=== PATIENT | female | born 1995 | race Caucasian/White ===

== ENCOUNTER → 2017-04-08 | Outpatient (CLI) | payer BC | LOC: M SLEEP HO 14:21 | DX: G47.30 Sleep apnea, unspecified (principal) | CPT/HCPCS: G0399 ==

== ENCOUNTER → 2017-05-19 | Outpatient (CLI) | payer BC | LOC: M SLEEP 19:49 | DX: G47.30 Sleep apnea, unspecified (principal) | CPT/HCPCS: 95810 ==

== ENCOUNTER → 2017-09-05 | Outpatient (REF) | payer BC ==
[2017-09-05 19:38] LABS: APPEARANCE, URINE HAZY (CLEAR); BACTERIA, URINE AUTO NEGATIVE (NEGATIVE); BILIRUBIN, URINE AUTO NEGATIVE (NEGATIVE); BLOOD, URINE BLOOD 1+ (NEGATIVE); COLOR, URINE YELLOW (YELLOW); GLUCOSE, URINE (UA) AUTO NEGATIVE (NEGATIVE); KETONE, URINE AUTO NEGATIVE (NEGATIVE); LEUKOCYTE ESTERASE, URINE AUTO 1+ (NEGATIVE); MUCUS, URINE SMALL (NEGATIVE); NITRITE, URINE AUTO NEGATIVE (NEGATIVE); PROTEIN, URINE AUTO NEGATIVE (NEGATIVE); RBC, URINE AUTO 2 /HPF (0-3); SPECIFIC GRAVITY URINE AUTO 1.023 (1.002-1.035); SQUAMOUS EPITHELIAL CELL UR AU 2 /HPF (0-6); UROBILINOGEN, URINE AUTO 0.2 mg/dL (0.0-2.0); WBC, URINE AUTO 3 /HPF (0-3)
== END ==
LOC: M LAB REF 16:36
DX: N39.0 Urinary tract infection, site not specified (principal)
CPT/HCPCS: 81001

== ENCOUNTER → 2017-09-26 | Outpatient (REF) | payer BC ==
[2017-09-26 22:05] LABS: APPEARANCE, URINE HAZY (CLEAR); BACTERIA, URINE AUTO 2+ (NEGATIVE); BILIRUBIN, URINE AUTO NEGATIVE (NEGATIVE); BLOOD, URINE BLOOD NEGATIVE (NEGATIVE); COLOR, URINE YELLOW (YELLOW); GLUCOSE, URINE (UA) AUTO NEGATIVE (NEGATIVE); KETONE, URINE AUTO NEGATIVE (NEGATIVE); LEUKOCYTE ESTERASE, URINE AUTO 3+ (NEGATIVE); MUCUS, URINE SMALL (NEGATIVE); NITRITE, URINE AUTO NEGATIVE (NEGATIVE); PROTEIN, URINE AUTO NEGATIVE (NEGATIVE); RBC, URINE AUTO 2 /HPF (0-3); SPECIFIC GRAVITY URINE AUTO 1.017 (1.002-1.035); SQUAMOUS EPITHELIAL CELL UR AU 4 /HPF (0-6); UROBILINOGEN, URINE AUTO 0.2 mg/dL (0.0-2.0); WBC, URINE AUTO 9 /HPF (0-3)
== END ==
LOC: M LAB REF 13:24
DX: N39.0 Urinary tract infection, site not specified (principal)
CPT/HCPCS: 81001

== ENCOUNTER → 2018-02-21 | Outpatient (CLI) | payer BC ==
[2018-02-21 22:00] LABS: CHLAMYDIA DNA AMPLIFICATION NEGATIVE (NEGATIVE); GC DNA AMPLIFICATION NEGATIVE (NEGATIVE)
[2018-02-22 08:23] LABS: HEPATITIS A ANTIBODY IGM NEGATIVE (NEGATIVE); HEPATITIS B CORE ANTIBODY IGM NEGATIVE (NEGATIVE); HEPATITIS B SURFACE ANTIGEN NEGATIVE (NEGATIVE); HIV 1&2 SCREEN CENTAUR NEGATIVE (NEGATIVE)
[2018-02-22 08:23] LABS: HEPATITIS C VIRUS ABY INDEX 0.1 INDEX (<0.8)
== END ==
LOC: M SMT 15:46
DX: Z11.3 Encounter for screening for infections with a predominantly sexual mode of transmission (principal)
CPT/HCPCS: 87340

== ENCOUNTER → 2018-02-21 | Outpatient (REF) | payer BC | LOC: M LAB REF 18:32 | DX: Z12.4 Encounter for screening for malignant neoplasm of cervix (principal); R87.612 Low grade squamous intraepithelial lesion on cytologic smear of cervix (LGSIL) | CPT/HCPCS: G0123 ==

== ENCOUNTER → 2018-04-11 | Outpatient (REF) | payer BC | LOC: M LAB REF 19:56 | PROVIDERS: ATTEND Obstetrics & Gynecology | DX: R87.612 Low grade squamous intraepithelial lesion on cytologic smear of cervix (LGSIL) (principal) ==

== ENCOUNTER → 2019-03-29 | Outpatient (REF) | payer BC ==
[2019-03-29 22:09] LABS: CHLAMYDIA DNA AMPLIFICATION NEGATIVE (NEGATIVE); GC DNA AMPLIFICATION NEGATIVE (NEGATIVE)
== END ==
LOC: M SFHCWAGY 17:06
PROVIDERS: ATTEND Advanced Practice Midwife
DX: Z12.4 Encounter for screening for malignant neoplasm of cervix (principal); Z11.3 Encounter for screening for infections with a predominantly sexual mode of transmission; N87.0 Mild cervical dysplasia; R87.612 Low grade squamous intraepithelial lesion on cytologic smear of cervix (LGSIL)
CPT/HCPCS: 87624; 87661; G0123

== ENCOUNTER → 2020-02-12 | Outpatient (REF) | payer BC | LOC: M WUC 09:30 | PROVIDERS: ATTEND Physician Assistant | DX: R30.0 Dysuria (principal) ==

== ENCOUNTER → 2020-06-18 | Outpatient (REF) | payer BC | LOC: M LAB REF 21:11 | PROVIDERS: ATTEND Physician Assistant | DX: R30.0 Dysuria (principal) ==

== ENCOUNTER → 2020-07-11 | Outpatient (REF) | payer BC | LOC: M SFHCWAGY 17:28 | PROVIDERS: ATTEND Obstetrics & Gynecology | DX: Z12.4 Encounter for screening for malignant neoplasm of cervix (principal); R87.620 Atypical squamous cells of undetermined significance on cytologic smear of vagina (ASC-US) | CPT/HCPCS: 87624; G0123 ==

== ENCOUNTER → 2020-07-11 | Outpatient (REF) | payer BC | LOC: M LAB REF 17:09 | PROVIDERS: ATTEND Nurse Practitioner Adult Health | DX: L81.8 Other specified disorders of pigmentation (principal) ==

== ENCOUNTER → 2021-06-30 | Outpatient (REF) | payer BC | LOC: M LAB REF 16:15 | PROVIDERS: ATTEND Nurse Practitioner Adult Health | DX: Z11.9 Encounter for screening for infectious and parasitic diseases, unspecified (principal); W57.XXXA Bitten or stung by nonvenomous insect and other nonvenomous arthropods, initial encounter ==

== ENCOUNTER → 2022-01-13 | Outpatient (REF) | payer BC | LOC: M SFHCWAGY 17:17 | PROVIDERS: ATTEND Obstetrics & Gynecology | DX: Z12.4 Encounter for screening for malignant neoplasm of cervix (principal) ==

== ENCOUNTER → 2022-03-16 | Outpatient (REF) | payer BC | LOC: M SFHCWAGY 10:14 | PROVIDERS: ATTEND Obstetrics & Gynecology | DX: N87.1 Moderate cervical dysplasia (principal) ==

== ENCOUNTER → 2022-04-23 | Outpatient (REF) | LOC: M EMP 09:20 | PROVIDERS: ATTEND Family Medicine | DX: Z11.52 Encounter for screening for COVID-19 (principal) ==

== ENCOUNTER → 2022-06-24 | Outpatient (REF) | payer BC | LOC: M SFHCWAGY 18:07 | PROVIDERS: ATTEND Obstetrics & Gynecology | DX: R87.612 Low grade squamous intraepithelial lesion on cytologic smear of cervix (LGSIL) (principal); N72 Inflammatory disease of cervix uteri ==

== ENCOUNTER → 2022-11-04 | Outpatient (REF) | payer BC | LOC: M LAB REF 17:16 | PROVIDERS: ATTEND Nurse Practitioner Adult Health | DX: R41.3 Other amnesia (principal) ==

== ENCOUNTER → 2022-11-29 | Outpatient (CLI) | payer BC ==
[~2022-11-29] MED LIST: PROHANCE 279.3MG/ML 15ML VIAL As Ordered ONE
== END ==
LOC: M RAD 15:06
PROVIDERS: ATTEND Nurse Practitioner Adult Health
DX: R51.9 Headache, unspecified (principal); R41.3 Other amnesia
CPT/HCPCS: 70553; A9576